=== PATIENT | female | born 1980 | race Caucasian/White ===

== ENCOUNTER 2024-10-02 10:53 | Emergency (ER) | payer OTHER ==
[2024-10-02 11:17] LABS: APPEARANCE,URINE CLEAR (CLEAR); GLUCOSE,URINE NEGATIVE (NEGATIVE); OCCULT BLOOD,URINE NEGATIVE (NEGATIVE)
[2024-10-02 11:25] LABS: SQUAMOUS EPITHELIAL CELLS,UR FEW /HPF
== END 2024-10-02 13:14 | disposition home or self-care (01) ==
LOC: JP.ED 10:53
DX: N39.0 Urinary tract infection, site not specified (principal); F17.200 Nicotine dependence, unspecified, uncomplicated; Z79.899 Other long term (current) drug therapy
CPT/HCPCS: 81001; 99282; 99283